=== PATIENT | male | born 1970 | race African-American/Black ===

== ENCOUNTER 2019-01-01 10:13 | Day surgery (SDC) | payer OTHER ==
[~2019-01-01] VITALS: Ht 175.3 cm; Wt 72.1 kg
[2019-01-01 14:05] VITALS: BP 154/80
== END 2019-01-01 14:52 | DRG 352 ==
LOC: ORM 10:13
PROVIDERS: ATTEND Surgery
PROC: 0YU54JZ Supplement Right Inguinal Region with Synthetic Substitute, Percutaneous Endoscopic Approach (ICD-10-PCS; principal; 2019-01-01)
DX: K40.90 Unilateral inguinal hernia, without obstruction or gangrene, not specified as recurrent (principal)
CPT/HCPCS: C1781; C9290; J0131; J2710